=== PATIENT | female | born 1960 | race Caucasian/White ===

== ENCOUNTER 2021-03-15 15:20 | Emergency (ER) | payer MEDICARE, OTHER ==
[2021-03-15 15:43] LABS: PTT,PARTIAL THROMBOPLSTIN TIME 21.8 SEC (23.2-32.3)
[2021-03-15 15:47] LABS: CHLORIDE,CL 100 mEq/L (98-106); SODIUM,NA 137 mEq/L (136-145)
[2021-03-15] MEDS: Sodium Chloride 0.9% 1,000 ML IV SCH (16:30)
[2021-03-15] MEDS: Aspirin 81 MG Tab.Chew PO ONE (16:44)
--- NOTE | 2021-03-15 17:34 | EDM.PDOC ---
ED HPI GENERAL MEDICAL PROBLEM - General Chief Complaint: General Stated Complaint: didnt feel herself Time Seen by Provider: 03/15/21 15:50 Source of Information: Reports: Patient History Limitations: Reports: No Limitations - History of Present Illness INITIAL COMMENTS - FREE TEXT/NARRATIVE: Deb is a 60 year old female who presents to ER with an episode of dizziness at home and mild chest discomfort. Has been dealing with a UTI, states was placed on Macrobid initially but that made her have abdominal pain, nausea and dizziness. Stopped that over the weekend and was feeling better. Was switched to Ceftin today, admits has been laying in bed and has not picked it up as she has "felt stressed and depressed today as she thought the vet was going to put her cat to sleep today". Did find out that "they were able to save her so felt better". Had a period of fuzziness this afternoon and was worried she was going to have another stroke. No shortness of breath. No fevers. Has not noted any change or increased weakness in her right side. Onset: Today Duration: Minutes:, Waxing/Waning Location: Reports: Head, Chest Quality: Reports: Ache Severity: Mild Improves with: Reports: Rest Worsens with: Reports: Movement Associated Symptoms: Reports: Chest Pain. Denies: Confusion, Cough, Fever/Chills, Headaches, Loss of Appetite, Malaise, Nausea/Vomiting, Shortness of Breath, Syncope, Weakness - Related Data Allergies Allergy/AdvReac Type Severity Reaction Status Date / Time No Known Allergies Allergy Verified 03/15/21 15:23 Home Meds: Home Meds Clopidogrel Bisulfate [Clopidogrel] 75 mg PO DAILY 01/18/16 [History] Lisinopril 10 mg PO DAILY 01/18/16 [History] Metoprolol Tartrate 25 mg PO BID 01/18/16 [History] Sertraline [Zoloft] 25 mg PO DAILY 01/18/16 [History] Denosumab [Prolia] 60 mg SUBCUT Q180D 07/26/16 [History] Baclofen 10 mg PO BID 01/24/17 [History] Aspirin [Ecotrin EC] 325 mg PO DAILY 03/15/21 [History] Baclofen 10 mg PO BID 03/15/21 [History] Simvastatin 40 mg PO DAILY 03/15/21 [History] Venlafaxine HCl [Venlafaxine ER] 37.5 mg PO DAILY 03/15/21 [History] amLODIPine [Norvasc] 5 mg PO DAILY 03/15/21 [History] Past Medical History HEENT History: Reports: None Cardiovascular History: Reports: Aneurysm Respiratory History: Reports: None Gastrointestinal History: Reports: None Genitourinary History: Reports: UTI, Recurrent Endocrine/Metabolic History: Reports: None - Infectious Disease History Infectious Disease History: Reports: None - Past Surgical History Female Surgical History: Reports: Hysterectomy Other Musculoskeletal Surgeries/Procedures:: L side affected by stroke 7 years ago Social & Family History - Family History Family Medical History: No Pertinent Family History - Tobacco Use Tobacco Use Status *Q: Never Tobacco User Second Hand Smoke Exposure: No - Caffeine Use Caffeine Use: Reports: Soda - Recreational Drug Use Recreational Drug Use: No ED ROS GENERAL - Review of Systems Review Of Systems: See Below Constitutional: Denies: Fever, Chills, Malaise, Weakness, Fatigue, Decreased Appetite HEENT: Reports: Vertigo. Denies: Ear Pain, Sinus Problem, Throat Pain Respiratory: Denies: Shortness of Breath, Cough Cardiovascular: Reports: Chest Pain, Lightheadedness. Denies: Edema Endocrine: Denies: Fatigue GI/Abdominal: Reports: Constipation (did feel bloated earlier, now had large BM and is resolved). Denies: Abdominal Pain, Diarrhea, Nausea, Vomiting Musculoskeletal: Reports: No Symptoms Skin: Reports: No Symptoms Neurological: Reports: Pre-Existing Deficit ED EXAM, GENERAL - Physical Exam Exam: See Below Exam Limited By: No Limitations General Appearance: Alert, WD/WN, No Apparent Distress Eye Exam: Bilateral Eye: PERRL Ears: Normal External Exam, Normal TMs Nose: Normal Inspection, Normal Mucosa, No Blood Throat/Mouth: Normal Inspection, Normal Oropharynx Head: Normocephalic Neck: Normal Inspection, Supple, Non-Tender Respiratory/Chest: No Respiratory Distress, Lungs Clear, Normal Breath Sounds Cardiovascular: Regular Rate, Rhythm GI/Abdominal: Normal Bowel Sounds, Soft, Non-Tender Extremities: Normal Inspection, No Pedal Edema Neurological: Alert, Oriented, CN II-XII Intact, Other (pre-existing left sided weakness from CVA) Skin Exam: Warm, Dry Course - Vital Signs Last Recorded V/S: Last Vital Signs Temp 99.0 F 03/15/21 16:33 Pulse 95 03/15/21 16:33 Resp 15 03/15/21 16:33 BP 141/87 H 03/15/21 16:33 Pulse Ox 96 03/15/21 16:33 - Orders/Labs/Meds Orders: Active Orders 24 hr Category Date Time Status Chest 2V [CR] Stat Exams 03/15/21 15:07 Taken Sodium Chloride 0.9% [Normal Saline] 1,000 ml Med 03/15/21 16:45 Active IV ASDIRECTED Medication Orders Sodium Chloride (Normal Saline) 1,000 mls @ 250 mls/hr IV ASDIRECTED CASTILLO Last Admin: 03/15/21 16:30 Dose: 250 mls/hr Documented by: RUDI Labs: Laboratory Tests 03/15/21 03/15/21 03/15/21 Range/Units 15:29 15:29 15:29 WBC 6.5 (4.0-11.0) 10^3/uL RBC 4.16 (4.00-5.50) x10^6/uL Hgb 12.9 (12.0-16.0) g/dL Hct 39.1 (37.0-47.0) % MCV 94.0 (83.0-97.0) fL MCH 31.0 (27.0-32.0) pg MCHC 33.0 (32.0-36.0) g/dL RDW Coeff of Zeus 12.1 (11.0-15.0) % Plt Count 287 (150-400) 10^3/uL Immature Gran % (Auto) 0.2 (0.0-4.9) % Neut % (Auto) 69.3 (41-71) % Lymph % (Auto) 18.5 L (24-44) % Ransom % (Auto) 9.6 (0-10) % Eos % (Auto) 1.8 (0-6) % Baso % (Auto) 0.6 (0-1) % Neut # (Auto) 4.52 (1.80-8.00) x10^3/uL Lymph # (Auto) 1.21 (0.60-5.00) 10^3/uL Ransom # (Auto) 0.63 (0.00-1.50) 10^3/uL Eos # (Auto) 0.12 (0.00-1.50) 10^3/uL Baso # (Auto) 0.04 (0.00-0.50) 10^3/uL Immature Gran # (Auto) 0.01 (0.00-0.49) 10^3/uL PT 10.5 (9.7-12.3) SEC INR 0.96 (0.92-1.18) APTT 21.8 L (23.2-32.3) SEC Sodium 137 (136-145) mEq/L Potassium 4.1 (3.5-5.0) mEq/L Chloride 100 (98-106) mEq/L Carbon Dioxide 25 (21-32) mmol/L BUN 25 H (7-18) mg/dL Creatinine 1.3 H D (0.6-1.0) mg/dL Est Cr Clr Drug Dosing 37.59 mL/min Estimated GFR (MDRD) 42 L (>=60) mL/min Glucose 108 H (75-99) mg/dL Calcium 9.4 (8.4-10.1) mg/dL Magnesium 2.0 (1.8-2.4) mg/dL Total Bilirubin 0.5 (0.0-1.0) mg/dL AST 20 (15-37) U/L ALT 24 (12-78) U/L Alkaline Phosphatase 97 (46-116) U/L Lactate Dehydrogenase 138 (100-190) U/L Creatine Kinase 153 (21-215) U/L Troponin I < 0.017 (0.00-0.06) ng/mL Total Protein 7.4 (6.4-8.2) g/dL Albumin 4.0 (3.4-5.0) g/dL Lipase 286 (73-393) U/L Meds: Medications Generic Name Dose Route Start Last Admin Trade Name Freq PRN Reason Stop Dose Admin Sodium Chloride 1,000 mls @ 250 mls/hr 03/15/21 16:45 03/15/21 16:30 Normal Saline IV 250 mls/hr ASDIRECTED CASTILLO Administration Discontinued Medications Generic Name Dose Route Start Last Admin Trade Name Freq PRN Reason Stop Dose Admin Aspirin 324 mg 03/15/21 15:11 03/15/21 16:44 Aspirin 81 Mg Tab.Chew PO 03/15/21 15:12 Not Given ONETIME ONE - Re-Assessments/Exams Free Text/Narrative Re-Assessment/Exam: 03/15 Patient's labs noted. Mild increase in BUN and creatinine from her norm otherwise unremarkable. EKG NSR. IV fluids started. Patient's symptoms have now resolved. 1715-Patient states got mildly "fuzzy again when standing" when transferred [place] [facility] but is feeling good at this time. No further dizziness. Discussed possibility of being related to dehydration and current UTI. Requesting to return home. Does not want to stay for full liter of fluids as is feeling much better now. Departure - Departure Time of Disposition: 17:35 Disposition: Home, Self-Care 01 Condition: Good Clinical Impression: Dehydration - Discharge Information *PRESCRIPTION DRUG MONITORING PROGRAM REVIEWED*: No *COPY OF PRESCRIPTION DRUG MONITORING REPORT IN PATIENT KAR: No Instructions: Dehydration, Adult, [id number] Forms: ED Department Discharge Additional Instructions: 1. Push fluids 2. Tylenol as needed for discomfort 3. Continue Ceftin for bladder infection 4. Return if chest pain returns, dizziness returns, weakness develops or persistent concerns. Sepsis Event Note (ED) - Evaluation Sepsis Screening Result: No Definite Risk - Focused Exam Vital Signs: Vital Signs Temp Pulse Resp BP Pulse Ox 03/15/21 16:33 99.0 F 95 15 141/87 H 96 03/15/21 15:27 99 F 95 15 141/87 H 96 - My Orders Last 24 Hours: My Active Orders 03/15/21 15:07 Chest 2V [CR] Stat 03/15/21 16:45 Sodium Chloride 0.9% [Normal Saline] 1,000 ml IV ASDIRECTED - Assessment/Plan Last 24 Hours: My Active Orders 03/15/21 15:07 Chest 2V [CR] Stat 03/15/21 16:45 Sodium Chloride 0.9% [Normal Saline] 1,000 ml IV ASDIRECTED
== END 2021-03-15 18:11 | disposition home or self-care (01) ==
LOC: CC.ED 15:20
DX: E86.0 Dehydration (principal); Z79.02 Long term (current) use of antithrombotics/antiplatelets; Z79.899 Other long term (current) drug therapy; Z79.82 Long term (current) use of aspirin
CPT/HCPCS: 36415; 71046; 80053; 82550; 83615; 83690; 83735; 84484; 85025; 85610; 85730; 93005; 99285; J7030; 93010; 99283

== ENCOUNTER 2024-12-04 16:45 | Observation (INO) | payer MEDICARE, OTHER ==
[2024-12-04 17:36] LABS: BASOPHILS ABSOLUTE AUTO 0.01 10^3/uL (0.00-0.50); BASOPHILS PERCENT AUTO 0.1 % (0-1); EOSINOPHILS ABSOLUTE AUTO 0.04 10^3/uL (0.00-1.50); EOSINOPHILS PERCENT AUTO 0.6 % (0-6); HEMATOCRIT 33.1 % (37.0-47.0); HEMOGLOBIN 11.3 g/dL (12.0-16.0); IMMATURE GRAN ABSOLUTE AUTO 0.02 10^3/uL (0.00-0.49); IMMATURE GRAN PERCENT AUTO 0.3 % (0.0-4.9); LYMPHOCYTES ABSOLUTE AUTO 0.81 10^3/uL (0.60-5.00); LYMPHOCYTES PERCENT AUTO 11.2 % (24-44); MEAN CORPUSCULAR HEMOGLOBIN 39.8 pg (27.0-32.0); MEAN CORPUSCULAR HGB CONC 34.1 g/dL (32.0-36.0); MEAN CORPUSCULAR VOLUME 116.5 fL (83.0-97.0); MONOCYTES ABSOLUTE AUTO 0.49 10^3/uL (0.00-1.50); MONOCYTES PERCENT AUTO 6.8 % (0-10); NEUTROPHILS ABSOLUTE AUTO 5.85 x10^3/uL (1.80-8.00); PLATELET COUNT,PLT 285 10^3/uL (150-400); RED BLOOD CELL COUNT 2.84 x10^6/uL (4.00-5.50); WHITE BLOOD CELL COUNT,WBC 7.2 10^3/uL (4.0-11.0)
[2024-12-04 18:04] LABS: ALANINE AMINOTRANSFERASE,ALT 17 U/L (12-78); ALBUMIN 3.7 g/dL (3.4-5.0); ALKALINE PHOSPHATASE 102 U/L (46-116); ASPARTATE AMNIOTRANSFERASE,AST 16 U/L (15-37); BILIRUBIN TOTAL 0.4 mg/dL (0.0-1.0); BLOOD UREA NITROGEN,BUN 21 mg/dL (7-18); C-REACTIVE PROTEIN < 0.50 mg/dL (<=0.50); CALCIUM 9.2 mg/dL (8.4-10.1); CARBON DIOXIDE,CO2 27 mmol/L (21-32); CHLORIDE,CL 103 mEq/L (98-106); ESTIMATED GFR 63 mL/min (>=60); GLUCOSE RANDOM 119 mg/dL (75-99); POTASSIUM,K 3.7 mEq/L (3.5-5.0); PROTEIN TOTAL,TP 7.2 g/dL (6.4-8.2); SODIUM,NA 139 mEq/L (136-145)
[2024-12-04] MEDS: Sodium Chloride 0.9% 1,000 ML IV ONE (18:11)
[2024-12-04] MEDS: Iopamidol 755 Mg/ML 100 ML Bottle IVPUSH ONE (18:16)
[2024-12-04 19:00] LABS: APPEARANCE,URINE SLIGHTLY CLOUDY (CLEAR); BILIRUBIN,URINE NEGATIVE (NEGATIVE); COLOR,URINE YELLOW (YELLOW); GLUCOSE,URINE NEGATIVE (NEGATIVE); KETONES,URINE TRACE mg/dL (NEGATIVE); LEUKOCYTE ESTERASE,URINE NEGATIVE (NEGATIVE); NITRITE,URINE POSITIVE (NEGATIVE); OCCULT BLOOD,URINE TRACE-INTACT (NEGATIVE); PH,URINE 6.5 (4.5-8.0); PROTEIN,URINE NEGATIVE (NEGATIVE)
[2024-12-04 19:09] LABS: AMPHETAMINES,URINE NEGATIVE (NEGATIVE); BACTERIA,URINE MODERATE /HPF (NOT SEEN); BARBITURATES,URINE NEGATIVE (NEGATIVE); BENZODIAZEPINE,URINE NEGATIVE (NEGATIVE); MDMA (ECSTASY), URINE NEGATIVE (NEGATIVE); METHADONE,URINE NEGATIVE (NEGATIVE); METHAMPHETAMINES,URINE NEGATIVE (NEGATIVE); OPIATES,URINE NEGATIVE (NEGATIVE); OXYCODONE,URINE NEGATIVE (NEGATIVE); PHENCYCLIDINE,URINE NEGATIVE (NEGATIVE); RBC,URINE 0-5 /HPF (0-5); SQUAMOUS EPITHELIAL CELLS,UR FEW /HPF (NOT SEEN); TCA,URINE NEGATIVE (NEGATIVE)
[2024-12-04] MEDS ORDERED: Docusate Sodium 100 MG Cap PO PRN (19:42)
[2024-12-04] MEDS ORDERED: traMADol 50 MG Tab PO PRN (19:42)
[2024-12-04] MEDS ORDERED: Ondansetron 4 MG Tab.DIS PO PRN (19:42)
[2024-12-04] MEDS ORDERED: Polyethylene Glycol 3350 Powder 17 GM Packet PO PRN (19:42)
[2024-12-04] MEDS: Aspirin 325 MG Tab.EC PO SCH (20:23)
[2024-12-04] MEDS: Metoprolol Tartrate 25 MG Tab PO SCH (20:23)
[2024-12-04] MEDS: Ondansetron 4 MG/2 ML SDV IV PRN (20:23)
[2024-12-04] MEDS: cefTRIAXone 1 GM Vial IVPUSH SCH (20:24)
[2024-12-04] MEDS: Baclofen 10 MG Tab PO SCH ×2 (20:40→20:44)
[2024-12-04] MEDS: Sodium Chloride 0.9% 1,000 ML IV SCH (20:48)
[2024-12-04] MEDS: Nystatin Topical Powder 15 GM Bottle ONE (23:15)
[2024-12-04] MEDS: Nystatin Topical Powder 15 GM Bottle TOP SCH (23:16)
[2024-12-05 07:15] LABS: BASOPHILS ABSOLUTE AUTO 0.02 10^3/uL (0.00-0.50); BASOPHILS PERCENT AUTO 0.5 % (0-1); EOSINOPHILS ABSOLUTE AUTO 0.08 10^3/uL (0.00-1.50); EOSINOPHILS PERCENT AUTO 1.9 % (0-6); HEMATOCRIT 31.2 % (37.0-47.0); HEMOGLOBIN 10.3 g/dL (12.0-16.0); IMMATURE GRAN ABSOLUTE AUTO 0.01 10^3/uL (0.00-0.49); IMMATURE GRAN PERCENT AUTO 0.2 % (0.0-4.9); LYMPHOCYTES ABSOLUTE AUTO 1.26 10^3/uL (0.60-5.00); LYMPHOCYTES PERCENT AUTO 29.2 % (24-44); MEAN CORPUSCULAR HEMOGLOBIN 38.9 pg (27.0-32.0); MEAN CORPUSCULAR VOLUME 117.7 fL (83.0-97.0); MONOCYTES PERCENT AUTO 9.3 % (0-10); NEUTROPHILS ABSOLUTE AUTO 2.55 x10^3/uL (1.80-8.00); NEUTROPHILS PERCENT AUTO 58.9 % (41-71); PLATELET COUNT,PLT 259 10^3/uL (150-400); RED BLOOD CELL COUNT 2.65 x10^6/uL (4.00-5.50); WHITE BLOOD CELL COUNT,WBC 4.3 10^3/uL (4.0-11.0)
[2024-12-05 07:26] LABS: CALCIUM 8.8 mg/dL (8.4-10.1); CREATININE 0.8 mg/dL (0.6-1.0); EST CRCL DRUG DOSING (CG) 57.99 mL/min; POTASSIUM,K 4.1 mEq/L (3.5-5.0)
[2024-12-05] MEDS: Lisinopril 10 MG Tab PO SCH (07:59)
[2024-12-05] MEDS: Venlafaxine 37.5 MG Cap.ER PO SCH (08:00)
[2024-12-05] MEDS: Baclofen 10 MG Tab PO SCH (08:00)
[2024-12-05] MEDS: Simvastatin 40 MG Tab PO SCH (08:00)
[2024-12-05] MEDS: amLODIPine 2.5 MG Tab PO SCH (08:00)
[2024-12-05] MEDS: Sertraline 25 MG Tab PO SCH (08:00)
[2024-12-05] MEDS: Clopidogrel 75 MG Tab PO SCH (08:01)
[2024-12-05] MEDS: Acetaminophen 325 MG Tab PO PRN (11:04)
[2024-12-05] MEDS: cefTRIAXone 1 GM Vial IVPUSH ONE (13:19)
== END 2024-12-05 13:30 | disposition home or self-care (01) ==
LOC: CC.ED 16:45 → SUPCPDRO 16:45 → CC.MS 19:11 → CC.ED 19:22 → UNDOADMOB 19:30 → CC.MS 19:30
PROVIDERS: ADMIT Nurse Practitioner; ATTEND Nurse Practitioner
DX: N30.01 Acute cystitis with hematuria (principal); R42 Dizziness and giddiness; E86.0 Dehydration; Z79.82 Long term (current) use of aspirin; Z20.822 Contact with and (suspected) exposure to COVID-19; Z79.899 Other long term (current) drug therapy
CPT/HCPCS: 36415; 70450; 70496; 70498; 71045; 80048; 80053; 80305; 81001; 82947; 83605; 83735; 84484; 85025; 85730; 86140; 87040; 87086; 87088; 87186; 87428; 93005; 96361; 96374; 96375; 96376; 97161; 99285; A9270; G0378; J0696; J2405; J7030; Q9967; 96360; 99223; 99238

== ENCOUNTER 2025-03-08 09:26 | Inpatient (IN) | payer MEDICARE, OTHER ==
[2025-03-08] MEDS ORDERED: Ondansetron 4 MG Tab.DIS PO PRN (10:04)
[2025-03-08] MEDS ORDERED: Ondansetron 4 MG/2 ML SDV IV PRN (10:04)
[2025-03-08] MEDS: Potassium Chloride 20 MEQ Tab.ER PO SCH (13:00)
[2025-03-08] MEDS: Nystatin Topical Powder 15 GM Bottle TOP SCH (14:33)
[2025-03-08] MEDS: Nitrofurantoin Monohydrate/Macrocrystalline 100 MG Cap PO SCH (17:21)
[2025-03-08] MEDS: Aspirin 325 MG Tab.EC PO SCH (19:11)
[2025-03-09] MEDS: Venlafaxine 75 MG Cap.ER PO SCH (07:26)
[2025-03-09] MEDS: Tuberculin, PPD 5 Units/0.1 ML 1 ML MDV IDERM ONE (08:56)
== END 2025-03-10 10:05 | DRG 948 ==
LOC: CC.MS 09:26 → UNDOADMIN 09:38 → CC.MS 09:38
PROVIDERS: ADMIT Physician Assistant Medical; ATTEND Physician Assistant Medical
DX: R53.1 Weakness (principal); N30.00 Acute cystitis without hematuria; I69.354 Hemiplegia and hemiparesis following cerebral infarction affecting left non-dominant side; R26.2 Difficulty in walking, not elsewhere classified; M25.572 Pain in left ankle and joints of left foot; E87.6 Hypokalemia; F03.90 Unspecified dementia, unspecified severity, without behavioral disturbance, psychotic disturbance, mood disturbance, and anxiety; Z79.899 Other long term (current) drug therapy; Z79.82 Long term (current) use of aspirin
CPT/HCPCS: 86580; 97110-GP; 97161-GP; A9270-GY

== ENCOUNTER 2025-05-17 14:18 | Inpatient (IN) | payer MEDICARE, OTHER ==
[2025-05-17 14:46] LABS: BASOPHILS ABSOLUTE AUTO 0.01 10^3/uL (0.00-0.50); BASOPHILS PERCENT AUTO 0.2 % (0-1); EOSINOPHILS ABSOLUTE AUTO 0.11 10^3/uL (0.00-1.50); EOSINOPHILS PERCENT AUTO 1.8 % (0-6); IMMATURE GRAN ABSOLUTE AUTO 0.03 10^3/uL (0.00-0.49); IMMATURE GRAN PERCENT AUTO 0.5 % (0.0-4.9); LYMPHOCYTES ABSOLUTE AUTO 1.16 10^3/uL (0.60-5.00); LYMPHOCYTES PERCENT AUTO 19.1 % (24-44); MONOCYTES ABSOLUTE AUTO 0.43 10^3/uL (0.00-1.50); MONOCYTES PERCENT AUTO 7.1 % (0-10); NEUTROPHILS ABSOLUTE AUTO 4.33 x10^3/uL (1.80-8.00); NEUTROPHILS PERCENT AUTO 71.3 % (41-71); PLATELET COUNT,PLT 212 10^3/uL (150-400); RED BLOOD CELL COUNT 2.42 x10^6/uL (4.00-5.50); WHITE BLOOD CELL COUNT,WBC 6.1 10^3/uL (4.0-11.0)
[2025-05-17 14:58] LABS: ALANINE AMINOTRANSFERASE,ALT 12.0 U/L (12-78); ASPARTATE AMNIOTRANSFERASE,AST 14.0 U/L (15-37); BILIRUBIN TOTAL 0.3 mg/dL (0.0-1.0); BLOOD UREA NITROGEN,BUN 53.0 mg/dL (7-18); CARBON DIOXIDE,CO2 26.0 mmol/L (21-32); CHLORIDE,CL 100.0 mEq/L (98-106); EST CRCL DRUG DOSING (CG) 17.84 mL/min; GLUCOSE RANDOM 94.0 mg/dL (75-99); POTASSIUM,K 5.1 mEq/L (3.5-5.0); PROTEIN TOTAL,TP 6.5 g/dL (6.4-8.2); SODIUM,NA 138.0 mEq/L (136-145)
[2025-05-17 15:00] LABS: CREATININE 2.6 mg/dL (0.6-1.0); ESTIMATED GFR 20.0 mL/min (>=60)
[2025-05-17] MEDS ORDERED: Ondansetron 4 MG Tab.DIS PO PRN (15:44)
[2025-05-17] MEDS ORDERED: Ondansetron 4 MG/2 ML SDV IV PRN (15:44)
[2025-05-17] MEDS: Aspirin 325 MG Tab.EC PO SCH (19:51)
[2025-05-17] MEDS: Nystatin Topical Powder 15 GM Bottle TOP SCH (20:54)
[2025-05-18 07:34] LABS: BASOPHILS ABSOLUTE AUTO 0.03 10^3/uL (0.00-0.50); BASOPHILS PERCENT AUTO 0.5 % (0-1); EOSINOPHILS ABSOLUTE AUTO 0.13 10^3/uL (0.00-1.50); EOSINOPHILS PERCENT AUTO 2.1 % (0-6); IMMATURE GRAN ABSOLUTE AUTO 0.02 10^3/uL (0.00-0.49); IMMATURE GRAN PERCENT AUTO 0.3 % (0.0-4.9); LYMPHOCYTES ABSOLUTE AUTO 1.38 10^3/uL (0.60-5.00); LYMPHOCYTES PERCENT AUTO 22.7 % (24-44); MONOCYTES ABSOLUTE AUTO 0.63 10^3/uL (0.00-1.50); MONOCYTES PERCENT AUTO 10.4 % (0-10); NEUTROPHILS ABSOLUTE AUTO 3.89 x10^3/uL (1.80-8.00); NEUTROPHILS PERCENT AUTO 64.0 % (41-71); PLATELET COUNT,PLT 178 10^3/uL (150-400); RED BLOOD CELL COUNT 1.66 x10^6/uL (4.00-5.50); WHITE BLOOD CELL COUNT,WBC 6.1 10^3/uL (4.0-11.0)
[2025-05-18] MEDS: Potassium Chloride 20 MEQ Tab.ER PO SCH (07:47)
[2025-05-18 07:56] LABS: ALANINE AMINOTRANSFERASE,ALT 6.0 U/L (12-78); ASPARTATE AMNIOTRANSFERASE,AST 13.0 U/L (15-37); BILIRUBIN TOTAL 0.3 mg/dL (0.0-1.0); BLOOD UREA NITROGEN,BUN 45.0 mg/dL (7-18); CARBON DIOXIDE,CO2 25.0 mmol/L (21-32); CHLORIDE,CL 107.0 mEq/L (98-106); CREATININE 2.1 mg/dL (0.6-1.0); EST CRCL DRUG DOSING (CG) 22.09 mL/min; GLUCOSE RANDOM 84.0 mg/dL (75-99); POTASSIUM,K 4.6 mEq/L (3.5-5.0); PROTEIN TOTAL,TP 5.1 g/dL (6.4-8.2); SODIUM,NA 140.0 mEq/L (136-145)
[2025-05-18 07:58] LABS: ESTIMATED GFR 26.0 mL/min (>=60)
[2025-05-19 07:47] LABS: ALANINE AMINOTRANSFERASE,ALT 13.0 U/L (12-78); ASPARTATE AMNIOTRANSFERASE,AST 17.0 U/L (15-37); BILIRUBIN TOTAL 0.3 mg/dL (0.0-1.0); BLOOD UREA NITROGEN,BUN 36.0 mg/dL (7-18); CARBON DIOXIDE,CO2 23.0 mmol/L (21-32); CHLORIDE,CL 109.0 mEq/L (98-106); CREATININE 1.6 mg/dL (0.6-1.0); EST CRCL DRUG DOSING (CG) 29.0 mL/min; GLUCOSE RANDOM 83.0 mg/dL (75-99); POTASSIUM,K 4.6 mEq/L (3.5-5.0); PROTEIN TOTAL,TP 4.9 g/dL (6.4-8.2); SODIUM,NA 140.0 mEq/L (136-145)
[2025-05-19 07:50] LABS: BASOPHILS ABSOLUTE AUTO 0.01 10^3/uL (0.00-0.50); BASOPHILS PERCENT AUTO 0.2 % (0-1); EOSINOPHILS ABSOLUTE AUTO 0.12 10^3/uL (0.00-1.50); EOSINOPHILS PERCENT AUTO 2.5 % (0-6); IMMATURE GRAN ABSOLUTE AUTO 0.00 10^3/uL (0.00-0.49); IMMATURE GRAN PERCENT AUTO 0.0 % (0.0-4.9); LYMPHOCYTES ABSOLUTE AUTO 0.97 10^3/uL (0.60-5.00); LYMPHOCYTES PERCENT AUTO 20.1 % (24-44); MONOCYTES ABSOLUTE AUTO 0.34 10^3/uL (0.00-1.50); MONOCYTES PERCENT AUTO 7.0 % (0-10); NEUTROPHILS ABSOLUTE AUTO 3.39 x10^3/uL (1.80-8.00); NEUTROPHILS PERCENT AUTO 70.2 % (41-71); PLATELET COUNT,PLT 170 10^3/uL (150-400); RED BLOOD CELL COUNT 1.64 x10^6/uL (4.00-5.50); WHITE BLOOD CELL COUNT,WBC 4.8 10^3/uL (4.0-11.0)
[2025-05-19 08:00] LABS: ESTIMATED GFR 36.0 mL/min (>=60)
[2025-05-19] MEDS: Lactobacillus Rhamnosus GG (Probiotic) Cap PO SCH (13:11)
[2025-05-20] MEDS: Nystatin Topical Powder 15 GM Bottle TOP SCH (05:02)
[2025-05-20 08:05] LABS: BASOPHILS ABSOLUTE AUTO 0.01 10^3/uL (0.00-0.50); BASOPHILS PERCENT AUTO 0.2 % (0-1); EOSINOPHILS ABSOLUTE AUTO 0.09 10^3/uL (0.00-1.50); EOSINOPHILS PERCENT AUTO 1.6 % (0-6); IMMATURE GRAN ABSOLUTE AUTO 0.03 10^3/uL (0.00-0.49); IMMATURE GRAN PERCENT AUTO 0.5 % (0.0-4.9); LYMPHOCYTES ABSOLUTE AUTO 0.93 10^3/uL (0.60-5.00); LYMPHOCYTES PERCENT AUTO 16.7 % (24-44); MONOCYTES ABSOLUTE AUTO 0.37 10^3/uL (0.00-1.50); MONOCYTES PERCENT AUTO 6.6 % (0-10); NEUTROPHILS ABSOLUTE AUTO 4.14 x10^3/uL (1.80-8.00); NEUTROPHILS PERCENT AUTO 74.4 % (41-71); PLATELET COUNT,PLT 168 10^3/uL (150-400); RED BLOOD CELL COUNT 2.19 x10^6/uL (4.00-5.50); WHITE BLOOD CELL COUNT,WBC 5.6 10^3/uL (4.0-11.0)
[2025-05-20 08:17] LABS: ALANINE AMINOTRANSFERASE,ALT 15.0 U/L (12-78); ASPARTATE AMNIOTRANSFERASE,AST 30.0 U/L (15-37); BILIRUBIN TOTAL 0.3 mg/dL (0.0-1.0); BLOOD UREA NITROGEN,BUN 27.0 mg/dL (7-18); CARBON DIOXIDE,CO2 21.0 mmol/L (21-32); CHLORIDE,CL 108.0 mEq/L (98-106); CREATININE 1.4 mg/dL (0.6-1.0); EST CRCL DRUG DOSING (CG) 33.14 mL/min; GLUCOSE RANDOM 74.0 mg/dL (75-99); POTASSIUM,K 4.2 mEq/L (3.5-5.0); PROTEIN TOTAL,TP 5.1 g/dL (6.4-8.2); SODIUM,NA 140.0 mEq/L (136-145)
[2025-05-20 08:18] LABS: ESTIMATED GFR 42.0 mL/min (>=60)
[2025-05-20] MEDS: Iopamidol 755 Mg/ML 100 ML Bottle IVPUSH ONE (10:14)
[2025-05-20] MEDS: Cyanocobalamin (Vitamin B12) 1,000 MCG/ML SDV IM ONE (11:34)
== END 2025-05-20 14:09 | disposition home or self-care (01) | DRG 683 ==
LOC: CC.ED 14:18 → CC.MS 16:13 → OBSVTOIN 05-18 14:11
PROVIDERS: ADMIT Physician Assistant Medical; ATTEND Physician Assistant Medical
DX: N17.9 Acute kidney failure, unspecified (principal); F03.93 Unspecified dementia, unspecified severity, with mood disturbance; I69.354 Hemiplegia and hemiparesis following cerebral infarction affecting left non-dominant side; J90 Pleural effusion, not elsewhere classified; R63.4 Abnormal weight loss; E86.0 Dehydration; R32 Unspecified urinary incontinence; I95.9 Hypotension, unspecified; K80.20 Calculus of gallbladder without cholecystitis without obstruction; Z87.440 Personal history of urinary (tract) infections; Z68.26 Body mass index [BMI] 26.0-26.9, adult; Z79.82 Long term (current) use of aspirin; Z79.899 Other long term (current) drug therapy; Z90.710 Acquired absence of both cervix and uterus
CPT/HCPCS: 36415; 36430; 71260; 74177; 80053; 82607; 82746; 83605; 85025; 86140; 86850; 86900; 86901; 86920; 86922; 87040; 96360; 96361; 99223; 99232; 99233; 99239; 99285-25; A9270-GY; G0378; J0696; J3420; J7030; P9016; Q9967